=== PATIENT | female | born 1955 | race Hispanic/Latino ===

== ENCOUNTER 2023-12-14 04:42 | Emergency (ER) | payer BC, OTHER ==
[2023-12-14] MEDS ORDERED: MECLIZINE HCL 12.5 MG TAB ONE (05:13)
[2023-12-14] MEDS ORDERED: NA CHLORIDE 0.9% 500 ML ONE (05:13)
[2023-12-14 05:25] LABS: Absolute Basophils 0.1 K/uL (0-0.5); Absolute Eosinophils 0.2 K/uL (0-0.5); Absolute Lymphocytes (CBC) 1.3 K/uL (0.7-4.9); Absolute Monocytes 0.4 K/uL (0.1-1.3); Absolute Neutrophil 4.3 K/uL (1.8-8.0); Basophils % 0.8 % (0-1.3); Eosinophils % 3.6 % (0-4.4); Hematocrit 36.9 % (36.0-45.0); Hemoglobin 12.8 g/dL (12.0-15.0); Lymphocytes % 20.3 % (15.3-44.8); MCH 32.4 pg (27.0-35.0); MCHC 34.6 g/dL (32.0-36.0); MCV 93.6 fL (80-100); MPV 6.8 fL (7.6-11.3); Monocytes % 6.9 % (3.3-12.3); Neutrophils % 68.4 % (41.7-73.7); Nucleated Red Blood Cells % 0.1 % (0-0); Platelets 325 thou/uL (152-406); RBC Red Blood Cell Count 3.94 M/uL (3.86-4.86); Red Cell Distribution Width 13.6 % (12.1-15.2)
[2023-12-14 05:29] LABS: PT Prothrombin Time 11.4 SECONDS (9.5-12.5); PTT, Activated Partial Thromb 29.9 SECONDS (24.3-36.9); Protime INR 1.04
[2023-12-14 05:43] LABS: ALT/SGPT 30 U/L (13-56); AST/SGOT 11 U/L (15-37); Albumin 3.8 g/dL (3.4-5.0); Alkaline Phosphatase 80 U/L (45-117); Anion Gap 8.7 mEq/L (5.0-15.0); BUN Blood Urea Nitrogen 21 mg/dL (7-18); Bicarbonate 25 mEq/L (21-32); Bilirubin Total 0.3 mg/dL (0.2-1.0); Globulin 3.7 g/dL (2.3-3.5); Glomerular Filtration Rate 92 ml/min (=/>90); Glucose Level 179 mg/dL (74-106); Magnesium 1.7 mg/dL (1.6-2.4); Potassium 3.7 mEq/L (3.5-5.1); Protein, Total 7.5 g/dL (6.4-8.2); Sodium Level 140 mEq/L (136-145); Troponin High Sensitivity 3.5 pg/mL (<58.9)
[2023-12-14 05:46] LABS: Bilirubin Direct < 0.1 mg/dL (0-0.2); Bilirubin Indirect, Calculated ND mg/dL (0.2-0.8)
[2023-12-14 06:46] LABS: Specific Gravity 1.027 (1.005-1.030); Urine Bilirubin NEGATIVE (Negative); Urine Blood Negative (Negative); Urine Clarity Clear (Clear); Urine Color Colorless (Yellow); Urine Glucose NEGATIVE (Negative); Urine Ketones NEGATIVE (Negative); Urine Microscopic Reflex YN NO UMIC; Urine Nitrite NEGATIVE (Negative); Urine Protein NEGATIVE (Negative); Urine Urobilinogen Normal (Normal); Urine pH 5.5 (5.0-7.0)
--- NOTE | 2023-12-14 07:07 | RAD REPORT ---
EXAM DESCRIPTION: CT - Head angio - 12/14/2023 6:15 am CLINICAL HISTORY: DIZZINESS COMPARISON: Head Brain Wo Cont dated 12/14/2023 TECHNIQUE: CT angiography of the head was performed with maximum intensity reformatted images. 3D ma ximum intensity pixel (MIP) reconstructions were created All CT scans are performed using dose optimization technique as appropriate and may include automated exposure control or mA/KV adjustment according to patient size. FINDINGS: Anterior circulation: No aneurysm or large vessel occlusion. No hemodynamically significant stenosis. No arteriovenous malf ormation identified. Posterior circulation: No aneurysm or large vessel occlusion. No hemodynamically significant stenosis. No arteriovenous malf ormation identified. IMPRESSION: No significant flow abnormality is detected.
--- NOTE | 2023-12-14 07:08 | RAD REPORT ---
EXAM DESCRIPTION: CT - Neck Angio - 12/14/2023 6:16 am CLINICAL HISTORY: dizziness COMPARISON: No comparisons TECHNIQUE: CT angiography of the neck vessels was performed with maximum intensity reformatted image s. CAROTID STENOSIS REFERENCE USING NASCET CRITERIA: Mild - <50% stenosis. Moderate - 50-69% stenosis. Severe - 70-94% stenosis. Near occlusion - 95-99% stenosis. Occluded - 100% stenosis. All CT scans are performed using dose optimization technique as appropriate and may include automated exposure control or mA/KV adjustment according to patient size. FINDINGS: A left aortic arch is identified with normal three vessel configuration of the great vesse ls. No significant flow abnormality is seen of the common carotid bilaterally. No significant stenosis is identified involving the cervical segments of both internal carotid arteri es. Normal flow is seen within both vertebral arteries. IMPRESSION: No significant flow abnormality of the neck vessels is identified.
--- NOTE | 2023-12-14 07:35 | ER ---
Nurse's Notes [facility] Name: Juana Crowe Age: 68 yrs Sex: Female : 1955 Arrival Date: 12/14/2023 Time: 04:42 Bed 17 Private MD: Diagnosis: Other peripheral vertigo Presentation: 12/13 04:52 Chief complaint: Patient states: dizziness with nausea,onset 2100 last night. Patient pf1 stated the dizziness is worse when moving her head from side to side. 04:52 Coronavirus screen: Vaccine status: Patient reports being unvaccinated. Client denies pf1 travel out of the [place] in the last 14 days. At this time, the client does not indicate any symptoms associated with coronavirus-19. Ebola Screen: Patient negative for fever greater than or equal to 101.5 degrees Fahrenheit, and additional compatible Ebola Virus Disease symptoms. Initial Sepsis Screen: Does the patient meet any 2 criteria? No. Patient's initial sepsis screen is negative. Does the patient have a suspected source of infection? No. Patient's initial sepsis screen is negative. Risk Assessment: Do you want to hurt yourself or someone else? Patient reports no desire to harm self or others. Onset of symptoms was December 13, 2023 at 21:00. 04:52 Method Of Arrival: Wheelchair pf1 04:52 Acuity: RADHA 3 pf1 Triage Assessment: 04:52 Neuro: Reports dizziness, since 2100 last night. GI: Reports nausea. pf1 Historical: - Allergies: 05:11 Bactrim; pf1 05:11 Benadryl; pf1 05:11 INFLUENZA VIRUS VACCINES; pf1 - PMHx: 05:11 Diabetes mellitus; pf1 05:17 vertigo; pf1 - PSHx: 05:11 Total abdominal hysterectomy; pf1 05:17 right breast mastectomy; pf1 - Immunization history:: Adult Immunizations not up to date, Client reports having NOT received the Covid vaccine. Last tetanus immunization: > 10 years ago Flu vaccine is not up to date. - Social history:: Smoking status: Patient denies any tobacco usage or history of. Patient/guardian denies using alcohol, street drugs. - Family history:: not pertinent. - Hospitalizations: : No recent hospitalization is reported. Screenin:30 [facility] ED Fall Risk Assessment (Adult) History of falling in the last 3 months, rv including since admission No falls in past 3 months (0 pts) Score/Fall Risk Level 0 - 2 = Low Risk Oriented to surroundings, Maintained a safe environment, Educated pt \T\ family on fall prevention, incl call for assistance when getting out of bed, Assessed \T\ reinforced patient's understanding of fall precautions. Abuse screen: Denies threats or abuse. Denies injuries from another. Nutritional screening: No deficits noted. Tuberculosis screening: No symptoms or risk factors identified. Assessment: 05:30 General: Appears comfortable, Behavior is calm, cooperative. Pain: Denies pain. Neuro: rv Level of Consciousness is awake, alert, obeys commands, Oriented to person, place, time, situation, Reports dizziness. Cardiovascular: Capillary refill < 3 seconds Patient's skin is warm and dry. Respiratory: Airway is patent Respiratory effort is even, unlabored. GI: Abdomen is flat, non-distended. : No signs and/or symptoms were reported regarding the genitourinary system. Derm: Skin is intact. Vital Signs: 04:52 BP 153 / 77; Pulse 72; Resp 16; Temp 98.2; Pulse Ox 99% on R/A; Weight 58.51 kg; Height pf1 5 ft. 1 in. ; Pain 0/10; 07:26 BP 120 / 67; Pulse 72; Resp 18; Pulse Ox 98% on R/A; ph 04:52 Body Mass Index 24.37 (58.51 kg, 154.94 cm) pf1 04:52 Pain Scale: Adult pf1 ED Course: 04:48 Patient arrived in ED. gm2 04:50 Beau Lopez MD is Attending Physician. rn 05:11 Triage completed. pf1 05:27 Chest Single View XRAY In Process Unspecified. EDMS 05:30 Patient has correct armband on for positive identification. Client placed on continuous rv cardiac and pulse oximetry monitoring. NIBP monitoring applied. traffic monitor specialist on. 05:31 Arm band placed on right wrist. rv 05:31 Initial lab(s) drawn, by me, sent to lab. Inserted saline lock: 20 gauge in left rv antecubital area, using aseptic technique. Blood collected. 05:31 No provider procedures requiring assistance completed. rv 06:16 CT Head Brain wo Cont In Process Unspecified. EDMS 06:[address] In Process Unspecified. EDMS 06:[address] In Process Unspecified. EDMS 06:40 Urinalysis w/ reflexes Sent. pf1 06:40 Urine collected: clean catch specimen, clear, 100ml. pf1 07:06 Attending Physician role handed off by Beau Lopez MD ec2 07:06 Epifanio Brush MD is Attending Physician. ec2 07:26 Kayli Berry RN is Primary Nurse. ph Administered Medications: 05:20 Drug: Meclizine PO 50 mg PO once Route: PO; jw7 05:20 Drug: NS 0.9% IV 500 ml IV at bolus once Route: IV; Rate: bolus; Site: left antecubital;jw7 Medication: 05:30 VIS not applicable for this client. rv Outcome: 07:35 Discharge ordered by . ec2 07:59 Patient left the ED. ph Signatures: Dispatcher [employer] EDBeau Dai MD MD rn Hall, Patricia, RN RN Erik Peters RN RN rv Waits, VERA Omalley RN jw7 Chiqui Osborne RN RN 1 Epifanio Brush MD MD 2 Janene Tipton [facility]
--- NOTE | 2023-12-14 07:35 | EDPHYS ---
Physician Documentation [facility] Name: Juana Crowe Age: 68 yrs Sex: Female : 1955 Arrival Date: 12/14/2023 Time: 04:42 Bed 17 Private MD: ED Physician Epifanio Brush HPI: 12/13 05:19 This 68 yrs old Female presents to ER via Wheelchair with complaints of rn Nausea, Dizziness. 05:19 The patient presents with lightheadedness, feeling off balance, sense of spinning. rn Onset: The symptoms/episode began/occurred last night, at 21:00. Modifying factors: The symptoms are alleviated by closing eyes, holding head still, the symptoms are aggravated by movement of head, standing up, changing position. Severity of symptoms: At their worst the symptoms were moderate in the emergency department the symptoms have improved. The patient has not recently seen a physician. Patient reports celebrating with family yesterday, at approximately 9 PM last night was seated and when stood up got dizzy and lightheaded, felt off balance. Family let her sleep it off, but woke up early in the morning still feeling dizzy, never went away. Patient with history of vertigo but states this is worse than other episodes. Denies recent head injury. No history of stroke. No changes in medication.. Historical: - Allergies: 05:11 Bactrim; pf1 05:11 Benadryl; pf1 05:11 INFLUENZA VIRUS VACCINES; pf1 - PMHx: 05:11 Diabetes mellitus; pf1 05:17 vertigo; pf1 - PSHx: 05:11 Total abdominal hysterectomy; pf1 05:17 right breast mastectomy; pf1 - Immunization history:: Adult Immunizations not up to date, Client reports having NOT received the Covid vaccine. Last tetanus immunization: > 10 years ago Flu vaccine is not up to date. - Social history:: Smoking status: Patient denies any tobacco usage or history of. Patient/guardian denies using alcohol, street drugs. - Family history:: not pertinent. - Hospitalizations: : No recent hospitalization is reported. ROS: 05:19 Constitutional: Negative for fever, chills, and weight loss, Neck: Negative for injury, rn pain, and swelling, Cardiovascular: Negative for chest pain, palpitations, and edema, Respiratory: Negative for shortness of breath, cough, wheezing, and pleuritic chest pain, Abdomen/GI: Positive for nausea Back: Negative for injury and pain, MS/Extremity: Negative for injury and deformity, Skin: Negative for injury, rash, and discoloration, Neuro: Negative for headache, weakness, numbness, tingling, and seizure, Exam: 05:19 Constitutional: This is a well developed, well nourished patient who is awake, alert, rn and in no acute distress. Head/Face: Normocephalic, atraumatic. Eyes: Pupils equal round and reactive to light, extra-ocular motions intact. Cardiovascular: Regular rate and rhythm. No pulse deficits. Respiratory: No increased work of breathing, no retractions or nasal flaring. Abdomen/GI: Soft, non-tender MS/ Extremity: Pulses equal, no cyanosis. Neuro: Awake and alert, GCS 15, oriented to person, place, time, and situation. Cranial nerves II-XII grossly intact. Motor strength 5/5 in all extremities. Sensory grossly intact. Cerebellar exam normal. Vital Signs: 04:52 BP 153 / 77; Pulse 72; Resp 16; Temp 98.2; Pulse Ox 99% on R/A; Weight 58.51 kg; Height pf1 5 ft. 1 in. ; Pain 0/10; 07:26 BP 120 / 67; Pulse 72; Resp 18; Pulse Ox 98% on R/A; ph 04:52 Body Mass Index 24.37 (58.51 kg, 154.94 cm) pf1 04:52 Pain Scale: Adult pf1 MDM: 04:50 Patient medically screened. rn 06:49 ED course: Patient feeling better, able to ambulate better, able to ambulate to the rn bathroom. Reports dizziness has improved.. 07:22 Data reviewed: vital signs. ED course: Previous physician, in brief patient arrives ec2 today due to concern for vertiginous symptoms. Plan is follow-up CT angio of the head and neck. Patient with symptom improvement after the initial meclizine. . 07:23 ED course: CT angio of the head and neck showed no acute flow-limiting stenosis. ec2 Metabolic profile is reassuring. CBC is reassuring, liver profile is unremarkable, coagulation profile unremarkable, troponin within normal ranges, urine is noninfectious appearing. Suspect peripheral cause of patient's symptoms. Chest x-ray shows no acute intrathoracic process. Discharged home. Will prescribe meclizine for vertigo. Return precautions given . 12/13 05:06 Order name: Basic Metabolic Panel; Complete Time: 06:04 rn 12/13 05:06 Order name: CBC with Diff; Complete Time: 06:04 rn 12/13 05:06 Order name: Hepatic Function; Complete Time: 06:04 rn 12/13 05:06 Order name: Magnesium; Complete Time: 06:04 rn 12/13 05:06 Order name: Protime (+inr); Complete Time: 06:04 rn 12/13 05:06 Order name: Ptt, Activated; Complete Time: 06:04 rn 12/13 05:06 Order name: Troponin High Sensitivity; Complete Time: 06:04 rn 12/13 05:06 Order name: Urinalysis w/ reflexes; Complete Time: 06:53 rn 12/13 05:06 Order name: CT Head Brain wo Cont rn 12/13 05:06 Order name: Chest Single View XRAY rn 12/13 05:06 Order name: Head Angio CT; Complete Time: 07:22 rn 12/13 05:06 Order name: Neck Angio CT; Complete Time: 07:22 rn 12/13 05:06 Order name: Cardiac monitoring; Complete Time: 05:32 rn 12/13 05:06 Order name: EKG - Nurse/Tech; Complete Time: 05:08 rn 12/13 05:06 Order name: IV Saline Lock; Complete Time: 05:20 rn 12/13 05:06 Order name: Labs collected and sent; Complete Time: 05:20 rn 12/13 05:06 Order name: NPO; Complete Time: 05:09 rn 12/13 05:06 Order name: O2 Per Protocol; Complete Time: 05:09 rn 12/13 05:06 Order name: O2 Sat Monitoring; Complete Time: 05:09 rn Administered Medications: 05:20 Drug: Meclizine PO 50 mg PO once Route: PO; jw7 05:20 Drug: NS 0.9% IV 500 ml IV at bolus once Route: IV; Rate: bolus; Site: left antecubital;jw7 Disposition Summary: 12/14/23 07:35 Discharge Ordered Notes: Location: Home ec2 Condition: Stable ec2 Diagnosis - Other peripheral vertigo ec2 Followup: ec2 - With: Private Physician - When: - Reason: Re-evaluation by your physician Discharge Instructions: - Discharge Summary Sheet ec2 - Vertigo, [id number] ec2 Forms: - Family Work Release ll1 - Medication Reconciliation Form ec2 - Thank You Letter ec2 - Antibiotic Education ec2 - Prescription Opioid Use ec2 - Patient Portal Instructions ec2 - Leadership Thank You Letter ec2 Prescriptions: - Meclizine 25 mg Oral tablet - take 2 tablet ORAL route every 8 hours As needed; 60 tablet; Refills: 0, ec2 Product Selection Permitted Signatures: Dispatcher [employer] EDMS Beau Lopez MD MD rn Waits, Jodi RN RN jw7 Chiqui Osborne RN RN pf1 Epifanio Brush MD MD ec2 Corrections: (The following items were deleted from the chart) 05:07 05:07 Head Angio+CT.RAD.BRZ ordered. EDMS EDMS 05:07 05:07 Neck Angio+CT.RAD.BRZ ordered. EDMS EDMS
--- NOTE | 2023-12-14 10:31 | RAD REPORT ---
EXAM DESCRIPTION: CT - Head Brain Wo Cont - 12/14/2023 6:56 am CLINICAL HISTORY: Vertigo;Dizziness COMPARISON: None Available. TECHNIQUE: Contiguous axial images of the brain were obtained without the administration of intraven ous contrast. This exam was performed according to our departmental dose-optimization program, which includes automated exposure control, adjustment of the mA and/or kV according to patient size and/or use of iterative reconstruction technique. FINDINGS: There is no acute intracranial hemorrhage or mass effect. Ventricular system is within nor mal limits. There is adequate pierson-white matter differentiation. There is no skull fracture. The visu alized paranasal sinuses and mastoid air cells are within normal limits. IMPRESSION: No acute intracranial abnormalities. Electronically signed by: Teddy Gann MD 12/14/2023 06:41 AM CDT Due to temporary technical issues with the PACS/Fluency reporting system, reports are being signed by the in house radiologist without review as a courtesy to ensure prompt reporting. The interpreting r adiologist is fully responsible for the content of the report.
--- NOTE | 2023-12-14 10:33 | RAD REPORT ---
EXAM DESCRIPTION: RAD - Chest Single View - 12/14/2023 5:26 am CLINICAL HISTORY: Vertigo COMPARISON: None FINDINGS: Cardiac silhouette is within normal limits. Decreased lung volumes could be secondary to u nderinflation. There is an infusion catheter with the tip ending at the level of the superior cava. T here is no focal parenchymal or pleural disease. There is no acute osseous process visualized. IMPRESSION: No evidence of acute cardiopulmonary disease. Electronically signed by: Teddy Gann MD 12/14/2023 05:39 AM CDT Due to temporary technical issues with the PACS/Fluency reporting system, reports are being signed by the in house radiologist without review as a courtesy to ensure prompt reporting. The interpreting r adiologist is fully responsible for the content of the report.
--- NOTE | 2023-12-14 13:37 | EKG ---
Test Date: 2023-12-14 Test Time: 04:05:05 Dough Molder: DEANGELO MEASUREMENT RESULTS: Intervals: Rate: 67 VA: 162 QRSD: 96 QT: 414 QTc: 437 [place]: P: 51 VA: 162 QRS: 46 T: 48 INTERPRETIVE STATEMENTS: Normal sinus rhythm Normal ECG No previous ECG available for comparison Electronically Signed On 12-14-23 13:36:06 CDT by Josh Nair
[2023-12-14 13:43] VITALS: BP 120/67; TEMP 98.2; O2SAT 98
== END 2023-12-14 07:59 | disposition home or self-care (01) ==
LOC: ER 04:42
DX: H81.399 Other peripheral vertigo, unspecified ear (principal); Z88.1 Allergy status to other antibiotic agents; Z88.7 Allergy status to serum and vaccine; Z88.8 Allergy status to other drugs, medicaments and biological substances
CPT/HCPCS: 93005; 85025; 80048; 36415; 83735; 85610; 80076; 85730; 81003; 84484; 70450; 70496; 70498; 71045; 99285; Q9967; J8597; J7040